=== PATIENT | male | born 1985 ===

== ENCOUNTER → 2022-09-02 16:15 | Outpatient (CLI) | payer OTHER, SELFPAY ==
--- NOTE | 2022-09-02 | DI.MRI.S_ITS ---
PROCEDURE: MR ANKLE RT WO/W CON INDICATIONS: Ganglion, right ankle TECHNIQUE: Noncontrast sagittal T1 spin echo and T2 fast spin echo with fat saturation, axial proton density fast spin echo and T2 fast spin echo with fat saturation, axial T1 spin echo with fat saturation, coronal T1 spin echo and T2 fast spin echo with fat saturation through the ankle/hindfoot. Post-contrast axial, coronal, and sagittal T1 spin echo with fat saturation through the ankle/hindfoot. COMPARISON: None. FINDINGS: Image quality: Excellent. Bones and joints: No suspicious osseous enhancement. No bone marrow contusions or fractures. No hindfoot coalitions. No osteochondral injuries of the talar dome. No pathologic joint effusions. Medial structures: The posterior tibialis, flexor digitorum longus, and flexor hallucis longus tendons are intact. The posterior tibial neurovascular bundle appears normal within the tarsal tunnel, without extrinsic mass effect. The deep layer (anterior and posterior tibiotalar ligaments) and superficial layer (tibionavicular, tibiospring, and tibiocalcaneal ligaments) of the deltoid ligament appear normal. The spring ligament components (superomedial calcaneonavicular, medioplantar oblique calcaneonavicular, and inferoplantar longitudinal ligaments) are intact. Lateral structures: The anterior talofibular, calcaneofibular, and posterior talofibular ligaments appear mildly thickened. More superiorly, the anterior and posterior tibiofibular ligaments appear intact, as is the intermalleolar ligament. The tibiofibular syndesmosis is normal in width at 2 mm or less. The peroneus longus and brevis tendons demonstrate normal location and morphology. Adjacent bony peroneal tubercle and retrotrochlear prominence are normal in size. The sinus tarsi demonstrates normal fatty signal, without edema, fibrosis, or cyst formation. Visualized sinus tarsi components (cervical ligament, interosseous talocalcaneal ligament, roots of the inferior extensor retinaculum) appear normal. The calcaneonavicular and calcaneocuboid components of the bifurcate ligament appear intact. The dorsal calcaneocuboid ligament appears intact. Anterior structures: The tibialis anterior, extensor hallucis longus, and extensor digitorum longus tendons appear intact. The dorsal talonavicular ligament appears intact. Posterior and plantar structures: Lobulated T2 hyperintense and T1 hypointense structure within subcutaneous soft tissue anterolateral to distal Achilles tendon is seen and measures up to 1.9 x 1.8 x 2.4 cm in size. No contrast enhancement is noted within this structure. Achilles tendon is intact. Medial and lateral bands of the plantar fascia are of normal thickness. No abductor digiti quinti muscle atrophy to suggest Covarrubias neuropathy. IMPRESSION: 1. Finding is suggestive of a 1.9 x 1.8 x 2.4 cm ganglion cyst in soft tissue anterior and lateral to the distal Achilles tendon near its insertion on posterior calcaneus. No enhancing soft tissue mass is seen. 2. No marrow edema. No fracture or dislocation. No osteochondral injuries of talar dome. No area of abnormal intraosseous enhancement. 3. Extensor, flexor, peroneus and Achilles tendons are intact. 4. Low-grade sprain involving anterior and posterior talofibular ligaments and calcaneal fibular ligament. Medial ankle ligaments are intact. Dictated by: Jason Walsh M.D. on 09/03/2022 at 9:38 Approved by: Jason Walsh M.D. on 09/03/2022 at 9:42
== END ==
PROVIDERS: PCP Family Medicine; Referring Provider Podiatrist; Visit Provider Podiatrist
DX: M67.471 Ganglion, right ankle and foot (principal); S93.492A Sprain of other ligament of left ankle, initial encounter; S93.411A Sprain of calcaneofibular ligament of right ankle, initial encounter
CPT/HCPCS: 73723